=== PATIENT | male | born 1950 | race Caucasian/White ===

== ENCOUNTER → 2017-04-06 | Outpatient (CLI) | payer MEDICARE, OTHER ==
--- NOTE | 2017-04-06 15:13 | KCIC ---
EXAM: Abdomen, single view. HISTORY: Nephrolithiasis. COMPARISON: 03/21/2016 FINDINGS: Frontal views of the abdomen and pelvis are obtained. There is a 3 mm calcification overlying the right renal shadow. The left renal shadow is obscured due to overlying bowel and gastric lap band device. There is nonobstructive bowel gas pattern. There are phleboliths within the pelvis. There is a large sclerotic lesion within the left iliac bone, stable in appearance. IMPRESSION: 1. Suspected stable 3 mm right renal stone. The suspected left renal stones on a radiograph dated 04/02/2014 are not clearly seen on this exam. 2. Nonobstructive bowel gas pattern. 3. Stable large sclerotic lesion within the left iliac bone. Electronically signed by: Sophia Gustafson MD (04/06/2017 3:10 PM) [id number]
== END | disposition home or self-care (01) ==
LOC: KCIC 14:18
PROVIDERS: ATTEND Urology
DX: N20.0 Calculus of kidney (principal)
CPT/HCPCS: 74000